=== PATIENT | female | born 1965 | race Caucasian/White ===

== ENCOUNTER 2016-04-28 13:56 | Emergency (ER) | payer OTHER ==
[~2016-04-28] VITALS: Ht 162.6 cm; Wt 104.5 kg
[2016-04-28 13:59] VITALS: BP 108/70; PULSE 90; RESP 16; O2SAT 99
--- NOTE | 2016-04-28 14:16 | ED.REPORT ---
HPI-Abd Pain F 40 and Over Date of Service Apr 28, 2016 ED Provider: The patient is a 50 year old female with history of hyperlipidemia and diabetes mellitus type II who presents to the emergency department from urgent care for abdominal pain that began last night around midnight. Her pain is diffusely throughout her abdomen and does not radiate anywhere else. She describes the pain as a fullness and pressure. She has also experienced nausea and decreased appetite. She noticed blood on the toilet paper after wiping, probably from a hemorrhoid. She had a normal BM yesterday and was able to pass gas today. She has been able to keep down fluids. She denies vomiting, diarrhea, dysuria, flank pain, back pain, fever or chills. Nursing Notes Stated Complaint: ABDOMINAL PAIN Chief Complaint: Female Abdominal Pain Nursing Notes Reviewed: Yes Allergies: Coded Allergies: No Known Allergies (Unverified , 04/28/16) Scheduled Atorvastatin (Lipitor) 40 Mg Tablet 40 MG PO DAILY Cholecalciferol (Vitamin D3) (Vitamin D3) 5,000 Unit Tablet 5,000 UNIT PO DAILY Glimepiride (Glimepiride) 1 Mg Tablet 1 MG PO DAILYAC Lisinopril (Lisinopril) 10 Mg Tablet 10 MG PO DAILY Metformin (Glucophage) 1,000 Mg Tablet 1,000 MG PO BID Scheduled PRN Meloxicam (Meloxicam) 7.5 Mg/5 Ml Oral.susp 15 MG PO DAILY PRN PRN For Pain Miscellaneous Medications ([bio X]) 1 General Time Seen by MD: 14:16 Chief Complaint Abdominal pain Hx Obtained From: Patient Arrived By: Walk-in Sudden in Onset?: Yes Onset Occurred: 13 - 16 hours ago Symptom Duration: Since onset Progression since Onset: Constant, Gradually worsening Location: : Diffuse Quality: Painful Severity: Current: Moderate Severity: Maximum: Moderate Associated with: Reports: Nausea Pertinent Negative: Pt denies other symptoms Recent Healthcare: No recent doctor visit, No recent hospitalization Similar Sx Previous: No Past Medical History Past Medical History Depression Hyperlipidemia Diabetes mellitus type II Past Surgical History Carpal tunnel Family History Noncontributory Smoking History Never Smoker Social History Other Social History: Local resident Ambulatory Status Independent Review of Systems +blood on toilet paper, decreased appetite Constitutional: Denies: Chills, Fever GI: Reports: Abdominal pain, Nausea, Denies: Diarrhea, Vomiting Female: Denies: Dysuria, Flank pain, Hematuria, Urinary frequency, Urinary urgency, Urination decreased, Urination increased Musculoskeletal: Denies: Back pain Complete sys rev & neg: except as marked. Physical Exam Vital Signs Vital Signs (First) Date Time Temp Pulse Resp B/P Pulse Ox O2 Delivery O2 Flow Rate FiO2 04/28/16 13:59 38.6 90 16 108/70 99 Room Air Initial VS: Reviewed Head / Eyes: Atraumatic, Normocephalic, PERRL ENT: Mucous membranes moist, Conjunctiva normal, No scleral icterus Neck: Supple, Non-tender, Full range of motion Lymphatic: No lymphadenopathy Extremities: Vascular intact, Neuro intact, No swelling, No tenderness Skin: Warm, Dry, No cyanosis Neurologic: Alert, Oriented, Nonfocal Psychiatric: Mood/affect normal, Behavior normal, Normal thought content General/Constitutional: Awake, Alert Respiratory / Chest: Atraumatic, Breath sounds NL, Breath sounds = bilat, No respiratory distress, No rales, No rhonchi, No wheezing, No stridor Cardiovascular: Heart rate NL, Regular rhythm, Heart sounds NL, No gallop, No murmurs, No rubs, Peripheral circulation NL Abdomen: Soft, No guarding, No rebound, BS normoactive, No distention, No hernia, No palpable mass, No pulsatile mass Tenderness/Guarding/Rebound: Positive: Tender diffuse (mild) Back: Inspection NL, Non-tender, No CVA tenderness Interpretation & Diagnostics Lab Results Interpretation Result Diagram: 04/28/16 1446 04/28/16 1446 Test 04/28/16 14:46 04/28/16 16:16 White Blood Count 9.6th/mm3 (3.8-10.1) Red Blood Count 4.08mil/mm3 (3.90-5.20) Hemoglobin 12.2g/dL (12.0-15.6) Hematocrit 37.8% (35.0-46.0) Mean Corpuscular Volume 92.6fL (81-100) Mean Corpuscular Hemoglobin 29.9pg (27.0-35.0) Mean Corpuscular Hemoglobin Concent 32.3% (32.0-37.0) Red Cell Distribution Width 13.8% (12.3-15.4) Platelet Count 204bil/L (150-400) Neutrophils (%) (Auto) 92.1% (40-74) Lymphocytes (%) (Auto) 4.6% (14-46) Monocytes (%) (Auto) 2.7% (4-12) Eosinophils (%) (Auto) 0% (0-5) Basophils (%) (Auto) 0.1% (0-3) Sodium Level 135mEq/L (134-144) Potassium Level 4.0mEq/L (3.5-5.2) Chloride Level 96mEq/L (97-108) Carbon Dioxide Level 26mmol/L (18-29) Blood Urea Nitrogen 18mg/dL (6-24) Creatinine 0.80mg/dL (0.57-1.00) Estimat Glomerular Filtration Rate 109mL/min (>59) Glucose Level 133mg/dL (60-99) Calcium Level 9.2mg/dL (8.5-10.1) Magnesium Level 1.8mg/dL (1.6-2.6) Total Bilirubin 1.1mg/dL (0.0-1.2) Aspartate Amino Transf (AST/SGOT) 16U/L (0-50) Alanine Aminotransferase (ALT/SGPT) 19U/L (0-32) Alkaline Phosphatase 55U/L (25-150) Total Protein 6.8g/dL (6.4-8.4) Albumin 4.4g/dL (3.4-5.0) Lipase 12U/L (13-60) Hold Melendrez Top Tube Received (Received) Hold Urine Received (Received) CT Abd / Pelvis Interpretation IMPRESSION: Circumferential wall thickening involving multiple loops of small bowel compatible with nonspecific enteritis. Multiple mildly dilated loops of small bowel most likely representing partial obstruction related to enteritis. Dictated by: Vanda Fernandez MD, PhD on 04/28/2016 at 16:39 Study type: Abdominal CT IV contrast Interpretation / Wet Read by: Discussed w radiologist Re-Eval/Medical Decision Med Decision/Clinical Course Overall patient's clinical history and evaluation do not seem consistent with a small bowel obstruction, she is passing flatus, not vomiting, and tolerating oral intake in the ER. She was initially febrile though her labs and her abdominal exam are benign. Overall after tolerating an oral trial with a benign abdominal exam and reassuring labs it was felt this patient is likely candidate for discharge. She tolerated juice and crackers without event. She actually was offered observation in the hospital for partial small bowel obstruction though she declined in lieu of going home and close follow-up. At the time of discharge on repeat evaluation of her vital signs, her blood pressure is borderline in the 90s. She will be observed to better determine if this is related to medications given in the ER or represents a more severe or life threatening process going on. Care transferred to Dr. Ferris Source of Hx: Old records, Private physician Re-Evaluation/Progress #1: Time of Eval: 17:00 Re-Evaluation/Progress Note: Rechecked the patient. She still complains of diffuse abdominal pain. She is able to keep fluids down but has not had a solid meal today. Discussed plan for PO trial. Re-Evaluation/Progress #2: Time of Eval: 17:38 Re-Evaluation/Progress Note: The patient was able to drink fluids and eat crackers. She has not vomited since being in the emergency department. On re-examination her abdomen is completely nontender. Discussed option for admission for observation and fluids. She would prefer to go home. Will discharged home with close followup. Re-Evaluation/Progress #3: Time of Eval: 17:57 Re-Evaluation/Progress Note: The patient's is hypotensive. Will administer IVF, repeat vitals, and discharge. Counseled Regarding: Diagnosis, Lab results, Need for follow-up, When/why to return to ED Discharge & Departure Primary Impression: Diffuse abdominal pain Disposition: Home Discharge Condition All VS Reviewed: Yes Condition: Stable Patient Instructions: Acute Abdominal Pain (ED) Additional Instructions: Thank you for entrusting us with your care today. Your exam findings and workup results today are reassuring. Your CT was concerning for a bowel obstruction but at this time you are able to keep fluids down and have not vomited. Followup with your regular doctor in the next 1-2 days for re-evaluation. Return to the emergency department if you are unable to pass gas, if your pain increases or if you develop vomiting, fever, or any other new or concerning symptoms. Referrals: Adelina Myers DO (PCP) Care Transferred to: [facility] Transferred at: 18:00 Scribe Attestation Portions of this note were transcribed by Fernanda Hall. I, Dr. Crane personally performed the history, physical exam and medical decision-making; I reviewed and confirmed the accuracy of the information in the transcribed note. Signed by: Delano Gipson, 04/28/2016 at 1802. copies to: Adelina Myers Timothy S DO Apr 28, 2016 14:16 Fernanda Hall Apr 28, 2016 14:26
[2016-04-28] MEDS ORDERED: 0.9% Sodium Chloride 1,000 ML IV ONE ×3 (14:22→18:35)
[2016-04-28] MEDS: Ondansetron 2 mg/mL 2 mL Inj IVPUSH PRN ×2 (14:50→21:58)
[2016-04-28] MEDS ORDERED: METF1000 PO (14:52)
[2016-04-28] MEDS ORDERED: GLIM1TAB PO (14:52)
[2016-04-28] MEDS ORDERED: MELO7.5O PO (14:52)
[2016-04-28] MEDS ORDERED: LIP40 PO (14:52)
[2016-04-28] MEDS ORDERED: LISI10TA PO (14:52)
[2016-04-28] MEDS ORDERED: BIO X (14:52)
[2016-04-28] MEDS ORDERED: CHOL500011 PO (14:52)
[2016-04-28 15:02] LABS: BASOPHILS % (AUTO) 0.1 % (0-3); EOSINOPHILS % (AUTO) 0 % (0-5); MONOCYTES % (AUTO) 2.7 % (4-12); Mean Corpuscular Hemoglobin 29.9 pg (27.0-35.0); Mean Corpuscular Volume 92.6 fL (81-100); NEUTROPHILS % (AUTO) 92.1 % (40-74); Platelet Count 204 bil/L (150-400)
[2016-04-28 15:19] LABS: Magnesium 1.8 mg/dL (1.6-2.6)
--- NOTE | 2016-04-28 16:56 | DRSVH ---
PROCEDURE: CT ABDOMEN AND PELVIS WITH CONTRAST ([id number]) INDICATIONS: lower abd pain fever TECHNIQUE: After the administration of intravenous contrast, 5 mm thick sections acquired from the diaphragm to the symphysis. 5 mm coronal and sagittal reformats were acquired. For radiation dose reduction, the following was used: automated exposure control, adjustment of mA and/or kV according to patient siz e. COMPARISON: None. FINDINGS: Image quality: Excellent. ABDOMEN: Lung bases: Lung bases are clear. 4 mm calcified granuloma noted in the right lung base. Heart size is normal. Solid organs: Liver and spleen are normal in size and enhancement. Gallbladder is within normal chamorro its. Biliary system is non dilated. Pancreas enhances normally. No adrenal nodules. Kidneys demon strate normal size and enhancement, without hydronephrosis. 2 mm nonobstructing right renal stone is noted. Peritoneum and bowel: Multiple, mildly dilated loops of small bowel are noted measuring up to 3.2 cm in diameter. There is circumferential wall thickening involving the multiple loops of small bowel. No free fluid or air. The appendix is not definitely visualized. Nodes and vessels: No retroperitoneal or mesenteric adenopathy by size criteria. Aorta and inferior vena cava are normal in size. Miscellaneous: No ventral hernias. PELVIS: Genitourinary: Bladder wall thickness is normal. Presence of intrauterine device noted. Miscellaneous: No inguinal hernias or adenopathy. Bones: No suspicious bony lesions. No vertebral body compression fractures. Spine degenerative disc disease and facet arthropathy noted. IMPRESSION: Circumferential wall thickening involving multiple loops of small bowel compatible with n onspecific enteritis. Multiple mildly dilated loops of small bowel most likely representing partial o bstruction related to enteritis. Dictated by: Vanda Fernandez MD, PhD on 04/28/2016 at 16:39 Approved by: Vanda Fernandez MD, PhD on 04/28/2016 at 16:55
[2016-04-28 17:46] VITALS: BP 93/65; PULSE 85; RESP 16; O2SAT 97
[2016-04-28 18:20] VITALS: BP 92/56; PULSE 82; RESP 20; O2SAT 98
[2016-04-28 18:25] VITALS: BP 97/64; PULSE 95; RESP 20; O2SAT 100
[2016-04-28 19:35] VITALS: BP 105/55; PULSE 85; RESP 16; O2SAT 100
[2016-04-28 20:07] LABS: APPEARANCE,URINE SLIGHTLY CLOUDY (CLEAR,HAZY); COLOR,URINE YELLOW (YELLOW); OCCULT BLOOD,URINE SMALL (NEGATIVE); PH,URINE 7.5 (5.0-8.0); UROBILINOGEN,URINE NORMAL (NORMAL)
[2016-04-28] MEDS ORDERED: Trimethoprim-Sulfa 160 mg-800 mg Tablet PO ONE (20:25)
[2016-04-28] MEDS ORDERED: _HYDROcodone/APAP 5-325 mg Tablet PO PRN (20:30)
[2016-04-28 22:03] VITALS: BP 105/64; PULSE 94; RESP 16; O2SAT 97
== END 2016-04-28 22:06 | disposition home or self-care (01) ==
LOC: SED 13:56
DX: R10.84 Generalized abdominal pain (principal); R11.0 Nausea; R63.0 Anorexia; E11.9 Type 2 diabetes mellitus without complications; E78.5 Hyperlipidemia, unspecified; Z79.84 Long term (current) use of oral hypoglycemic drugs
CPT/HCPCS: 36415; 74177; 80053; 81001; 83690; 83735; 84484; 85025; 87086; 87088; 93005; 96361; 96374; 96375; 96376; 99285; J2270; J2405; J7030; Q9967